=== PATIENT | male | born 2000 | race Native Hawaiian/Other Pacific Islander ===

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

== ENCOUNTER 2019-12-18 16:05 | Emergency (ER) | payer OTHER ==
[2019-12-18 16:13] VITALS: BP 162/86
--- NOTE | 2019-12-18 16:40 | ED Physician Documentation ---
PD HPI HEAD INJURY - Stated complaint Stated Complaint: LEFT JAW PX - Chief complaint Chief Complaint: Trauma Hd/Nk - History obtained from History obtained from: Patient - History of Present Illness Mechanism of head injury: Other (He has had swelling tenderness and some redness without drainage from the left cheek for couple of few days and has noticed now some left side of the neck swelling. He had had an injury on the right side of his face a week ago but did not have any swelling there. This is now developed on the left side not in an injured area.) Where head injury occurred: Home Timing - onset: How many days ago (few) Location of injury: Left (cheek) Quality of pain: Aching Associated symptoms: No: AMS, Nausea / vomiting Similar symptoms before: Has not had sx before Review of Systems Constitutional: denies: Fever, Chills Nose: denies: Rhinorrhea / runny nose, Congestion Throat: denies: Sore throat Respiratory: denies: Cough Skin: reports: Lesions (redness and local swelling left cheek within area of barrientos. He thought it was an ingrown hair.) PD PAST MEDICAL HISTORY - Past Medical History Endocrine/Autoimmune: None Musculoskeletal: None - Past Surgical History Past Surgical History: No - Present Medications Home Medications: Ambulatory Orders Medication Instructions Recorded Confirmed Ibuprofen [Motrin] 600 mg PO BID #20 tab 07/06/17 Tramadol HCl 50 mg PO Q6H PRN #20 tablet 07/06/17 dexAMETHasone [Decadron] 4 mg PO DAILY #5 tablet 07/06/17 methocarbamoL [Robaxin] 500 mg PO TID #20 tablet 07/06/17 Mupirocin 1 applic TP TID #15 g 12/18/19 Sulfamethox/Trimeth 800/160 1 each PO BID #14 tablet 12/18/19 [Bactrim Ds 800/160] - Allergies Allergies/Adverse Reactions: Allergies Allergy/AdvReac Type Severity Reaction Status Date / Time oseltamivir phosphate * Allergy Unknown Verified 12/18/19 16:10 [From Tamiflu] - Social History Does the pt smoke?: No Smoking Status: Never smoker Does the pt drink ETOH?: No Does the pt have substance abuse?: No - Immunizations Immunizations are current?: Yes PD ED PE NORMAL - Vitals Vital signs reviewed: Yes - General General: Alert and oriented X 3, No acute distress, Well developed/nourished - HEENT HEENT: Ears normal, Pharynx benign, Other (The left cheek shows some induration redness and warmth with will local area of tenderness within the area of his barrientos. There is some almost pointing of redness consistent with a local skin infection. Palpation intraorally does not show any lesions or swelling in that area. He has strong occlusion without any teeth pain. There is no fluctuance noted. The area of induration is only about 1-1/2 cm and does not feel very deep.) - Neck Neck: Supple, no meningeal sign, Other (anterior adenopathy left neck.) Results - Vitals Vitals: Vital Signs - 24 hr 12/18/19 16:10 Temperature 37.1 C Heart Rate 76 Respiratory 16 Rate Blood Pressure 162/86 H O2 Saturation 97 Oxygen O2 Source Room air PD MEDICAL DECISION MAKING - ED course Complexity details: considered differential (His injury on the right cheek last week is seeming unrelated to the current problem. He has an area of small skin abscess without any drainage. There is not fluctuance enough to warrant incision and drainage. We will treated with antibiotics.), d/w patient Departure - Departure Disposition: Home, Self Care Clinical Impression: Cutaneous abscess of face Condition: Stable Record reviewed to determine appropriate education?: Yes Instructions: ED Staph Infec Abx Tx Only Prescriptions: Mupirocin 1 applic TP TID #15 g Sulfamethox/Trimeth 800/160 [Bactrim Ds 800/160] 1 each PO BID #14 tablet Comments: Warm ice towels to help dry out the infection. You can treat her with topical antiseptics or such as well. Cleanse the area with soap and water and apply mupirocin antibiotic ointment 2-3 times a day. Also Bactrim oral antibiotic twice daily to get at the infection underneath the skin. Tylenol or ibuprofen if needed for pains. Recheck if not improved well over the next several days and resolved within 4 to 5 days. Discharge Date/Time: 12/18/19 17:23
[2019-12-18] MEDS ORDERED: SULFAMETH/TRIMETH DS 800/160 MG TABLET PO STA (16:51)
[2019-12-18] MEDS ORDERED: MUPIROCIN 2% OINT 1 GM TOP STA (16:51)
== END 2019-12-18 17:23 | disposition home or self-care (01) ==
LOC: ED 16:05
DX: L02.01 Cutaneous abscess of face (principal)
CPT/HCPCS: 99282; 99283; A9270

== ENCOUNTER 2021-11-26 14:02 | Emergency (ER) | payer BC, OTHER ==
[2021-11-26 14:26] VITALS: BP 145/73
--- NOTE | 2021-11-26 15:17 | ED Physician Documentation ---
PD HPI LOWER EXT INJURY - Stated complaint Stated Complaint: LT KNEE PX - Chief complaint Chief Complaint: Trauma Ext - History obtained from History obtained from: Patient - Additional information Additional information: The patient comes to the emergency department with chief complaint of left knee pain after injury yesterday while snowboarding. Patient states he was dropping a jump that was approximately 10 feet high when his board caught and he became disconnected from the board, falling to the ground. He states he felt a pop when his boots popped out of the board, but then felt another pop when he hit the ground. Patient states that he has had pain over his whole knee but especially on the medial aspect, and is also had some swelling. He has been able to hobble around and was able to drive his stick shift car home while operating the clutch, but he was noticing some pain in the medial knee with this. Patient states he was not injured in any other way. No prior history of injury to that knee. The patient is otherwise healthy. Review of Systems Ten Systems: 10 systems reviewed and negative Constitutional: reports: Reviewed and negative Eyes: reports: Reviewed and negative Ears: reports: Reviewed and negative Nose: reports: Reviewed and negative Throat: reports: Reviewed and negative Cardiac: reports: Reviewed and negative Respiratory: reports: Reviewed and negative GI: reports: Reviewed and negative : reports: Reviewed and negative Skin: reports: Reviewed and negative Musculoskeletal: reports: Joint pain, Joint swelling, Pain with weight bearing Neurologic: reports: Reviewed and negative Psychiatric: reports: Reviewed and negative Endocrine: reports: Reviewed and negative Immunocompromised: reports: Reviewed and negative PD PAST MEDICAL HISTORY - Past Medical History Endocrine/Autoimmune: None Musculoskeletal: None - Past Surgical History Past Surgical History: No - Present Medications Home Medications: Ambulatory Orders Medication Instructions Recorded Confirmed Ibuprofen [Motrin] 600 mg PO BID #20 tab 07/06/17 Tramadol HCl 50 mg PO Q6H PRN #20 tablet 07/06/17 dexAMETHasone [Decadron] 4 mg PO DAILY #5 tablet 07/06/17 methocarbamoL [Robaxin] 500 mg PO TID #20 tablet 07/06/17 Mupirocin 1 applic TP TID #15 g 12/18/19 Sulfamethox/Trimeth 800/160 1 each PO BID #14 tablet 12/18/19 [Bactrim Ds 800/160] - Allergies Allergies/Adverse Reactions: Allergies Allergy/AdvReac Type Severity Reaction Status Date / Time oseltamivir phosphate * Allergy Unknown Verified 11/26/21 14:26 [From Tamiflu] - Social History Does the pt smoke?: No Smoking Status: Never smoker Does the pt drink ETOH?: No Does the pt have substance abuse?: No - Immunizations Immunizations are current?: Yes PD ED PE NORMAL - Vitals Vital signs reviewed: Yes - General General: Alert and oriented X 3, No acute distress, Well developed/nourished - HEENT HEENT: Atraumatic, PERRL, EOMI, Moist mucous membranes - Neck Neck: Supple, no meningeal sign - Cardiac Cardiac: Strong equal pulses - Respiratory Respiratory: No respiratory distress - Derm Derm: Normal color, Warm and dry, No rash - Extremities Extremities: No deformity, Other (Tenderness palpation medial aspect of left knee with mild edema. Mild tenderness palpation posterior knee. No lateral edema. Patella tracks normally without tenderness. No knee instability) - Neuro Neuro: Alert and oriented X 3, No motor deficit, No sensory deficit, Other (Grossly intact) - Psych Psych: Normal mood, Normal affect Results - Vitals Vitals: Vital Signs - 24 hr 11/26/21 14:22 Temperature 36.9 C Heart Rate 64 Respiratory 14 Rate Blood Pressure 145/73 H O2 Saturation 96 Oxygen O2 Source Room air - Rads (name of study) Left knee x-ray series Radiology: Final report received, EMP read indepedently, See rad report (Negative) PD MEDICAL DECISION MAKING - ED course Complexity details: reviewed results, re-evaluated patient, considered differential, d/w patient ED course: The patient had focused tenderness and swelling medially, and I was concerned for an MCL injury. However, I could not be sure the patient did not have some degree of ACL or PCL injury, as well. The patient seemed to have a stable knee on exam, but I felt he should be placed in a knee mobilizer, and follow-up with orthopedics to discuss having an MRI done. The patient has also been given crutches. We have discussed symptomatic management at home. I have given him the contact information for orthopedic clinic. Departure - Departure Disposition: 01 Home, Self Care Clinical Impression: Knee MCL sprain Qualifiers: Encounter type: initial encounter Laterality: left Qualified Code(s): S83.412A - Sprain of medial collateral ligament of left knee, initial encounter Condition: Stable Instructions: ED Sprain Knee Collateral Ligaments Follow-Up: Jhoan Ashford MD [Provider Admit Priv/Credential] - Comments: Your x-rays look great. Your knee seems to be stable on exam, with the swelling and tenderness over the inside portion of the knee is concerning for a medial collateral ligament injury. It is difficult to tell at this point in time whether you may have injured your ACL or PCL, as well. It is important that you follow-up with orthopedics for repeat exam and possibly an MRI if they feel this is appropriate. Please call their office this afternoon or first thing tomorrow to set up a follow-up appointment. In the meantime, please wear the knee immobilizer and use the crutches to get around. Take ibuprofen and/or Tylenol if needed. You should ice the swollen area several times a day for 20 minutes at a time.
--- NOTE | 2021-11-26 15:25 | XRAY Report ---
PROCEDURE: Knee 3 View LT INDICATIONS: knee injury, pain TECHNIQUE: 3 views of the left knee(s) were acquired. COMPARISON: None. FINDINGS: Bones: No fractures or dislocations. No suspicious bony lesions. Soft tissues: No joint effusion. No suspicious soft tissue calcifications. IMPRESSION: Intact left knee. If there is continued concern for internal derangement, MR is recommen ded. Reviewed by: Rebecca Soliz MD on 11/26/2021 3:23 PM PST Approved by: Rebecca Soliz MD on 11/26/2021 3:23 PM PST Station ID: [id number]
== END 2021-11-26 15:51 | disposition home or self-care (01) ==
LOC: ED 14:02
DX: S83.412A Sprain of medial collateral ligament of left knee, initial encounter (principal); W17.89XA Other fall from one level to another, initial encounter; Y93.23 Activity, snow (alpine) (downhill) skiing, snowboarding, sledding, tobogganing and snow tubing
CPT/HCPCS: 99282; 99283

== ENCOUNTER 2021-12-01 07:38 | Outpatient (CLI) | payer BC ==
--- NOTE | 2021-12-01 16:07 | XRAY Report ---
PROCEDURE: Knee 3 View LT INDICATIONS: KNEE PAIN TECHNIQUE: 3 views of the left knee(s) were acquired. COMPARISON: None. FINDINGS: Bones: No fractures or dislocations. No suspicious bony lesions. Soft tissues: No joint effusion. No suspicious soft tissue calcifications. IMPRESSION: No acute fracture. No osseous lesion. If symptoms and/or clinical suspicion for patholog y continue, further assessment with repeat plain films, or advanced imaging (e.g., CT, MRI, or bone s can) is recommended for further assessment. Reviewed by: Deana Pinto MD on 12/01/2021 4:06 PM PST Approved by: Deana Pinto MD on 12/01/2021 4:06 PM [facility] Station ID: [id number]
== END 2021-12-01 07:39 | disposition home or self-care (01) ==
LOC: DI.WOS 07:38
PROVIDERS: ATTEND Orthopaedic Surgery
DX: M25.562 Pain in left knee (principal)

== ENCOUNTER 2022-02-25 10:58 | Emergency (ER) | payer BC, OTHER ==
[2022-02-25 11:22] VITALS: BP 168/88
[2022-02-25 11:49] LABS: RAPID STREP SCREEN Negative (Negative)
--- NOTE | 2022-02-25 11:49 | ED Physician Documentation ---
History of Present Illness - Stated complaint Stated Complaint: CONGESTED/COUGH - Chief complaint Chief Complaint: Heent - Additonal information Additional information: 21-year-old male presents emergency department for evaluation of cough c ongestion and sore throat. Symptoms began about 2 months ago. He is not vaccinated for COVID-19 but he recently saw his primary doctor. He reports that strep COVID and mono testing was all negative. States that he constantly has a productive cough sometimes some mildly blood-tinged sputum. Also blows his nose frequently also sometimes blood-tinged. No fevers. No weight loss or night sweats. His cough is worse at night especially when fully supine. He has occasionally tried Flonase with minimal relief. His PCP did advise him to start taking omeprazole though he denies a history of GERD or acid reflux. He does have enlarged tonsils but denies any history of snoring or sleep apnea. Review of Systems Constitutional: denies: Fever, Chills, Myalgias Nose: reports: Rhinorrhea / runny nose, Congestion, Epistaxis Throat: reports: Reviewed and negative Cardiac: reports: Reviewed and negative Respiratory: reports: Cough, Hemoptysis. denies: Dyspnea, Wheezing GI: reports: Reviewed and negative : reports: Reviewed and negative Skin: reports: Reviewed and negative Musculoskeletal: reports: Reviewed and negative PD PAST MEDICAL HISTORY - Past Medical History Endocrine/Autoimmune: None Musculoskeletal: None - Past Surgical History Past Surgical History: No - Present Medications Home Medications: Ambulatory Orders Medication Instructions Recorded Confirmed Ibuprofen [Motrin] 600 mg PO BID #20 tab 07/06/17 Tramadol HCl 50 mg PO Q6H PRN #20 tablet 07/06/17 dexAMETHasone [Decadron] 4 mg PO DAILY #5 tablet 07/06/17 methocarbamoL [Robaxin] 500 mg PO TID #20 tablet 07/06/17 Mupirocin 1 applic TP TID #15 g 12/18/19 Sulfamethox/Trimeth 800/160 1 each PO BID #14 tablet 12/18/19 [Bactrim Ds 800/160] - Allergies Allergies/Adverse Reactions: Allergies Allergy/AdvReac Type Severity Reaction Status Date / Time oseltamivir phosphate * Allergy Unknown Verified 02/25/22 11:22 [From Tamiflu] - Social History Does the pt smoke?: No Smoking Status: Never smoker Does the pt drink ETOH?: No Does the pt have substance abuse?: No - Immunizations Immunizations are current?: Yes PD ED PE NORMAL - General General: Alert and oriented X 3, No acute distress, Well developed/nourished - HEENT HEENT: Atraumatic, Ears normal, Moist mucous membranes, Other (Symmetrically enlarged tonsils without exudate. Mild erythema. Uvula is midline. No soft palate asymmetry or swelling. Normal phonation. Full range of motion in neck.). 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 Eye Opening: Spontaneous Motor: Obeys Commands Verbal: Oriented GCS Score: 15 - Psych Psych: Normal mood Results - Vitals Vitals: Vital Signs - 24 hr 02/25/22 11:17 Temperature 36.5 C Heart Rate 66 Respiratory 16 Rate Blood Pressure 168/88 H O2 Saturation 99 Oxygen O2 Source Room air - Labs Labs: Laboratory Tests 02/25/22 11:33 Group A Strep Rapid Negative - Rads (name of study) CXR Radiology: Final report received (No acute cardiopulmonary process) PD MEDICAL DECISION MAKING - ED course Complexity details: reviewed results, re-evaluated patient, considered differential, d/w patient ED course: 21-year-old male presents emergency department for evaluation of chronic cough congestion and sore throat that has been ongoing for more than 2 months. Seen by PCP recently and advised Flonase for suspicion of allergies as well as omeprazole for the thought that he may have silent GERD. Despite this he has not improved. Cardiopulmonary auscultation is unremarkable without hypoxia. Chest x-ray is also unrevealing. I have advised him to add Claritin as well as to use the Flonase after a steam shower and nasal rinse. Will defer any antibiotics given lack of fever and findings on chest x-ray. Did advise him to sleep upright on 2-3 pillows to help reduce postnasal drip likely contributing to symptoms. Departure - Departure Disposition: 01 Home, Self Care Clinical Impression: Cough, Post-nasal drip Condition: Stable Record reviewed to determine appropriate education?: Yes Comments: You are seen today in the emergency department for evaluation of cough congestion and sore throat. Your symptoms began about 2 months ago. Your chest x-ray is completely normal. There is no findings of pneumonia, mass or pleural effusion. Your chronic cough is likely due to allergies and postnasal drip. Use the Flonase after taking a shower. While you are in the shower I recommend that you breathing the steam blow your nose well and use a saline nasal rinse or [place] pot to help reduce congestion. Once your nose is free of congestion the Flonase will be much more effective. I also recommend that you start taking a daily Claritin to help with any seasonal allergies that are contributing to symptoms. Postnasal drip and silent acid reflux at night can cause this chronic cough. I recommend that you avoid eating 2 to 3 hours before bedtime and sleep upright on 2-3 pillows. If despite this treatment your symptoms are not better over the next 7 to 10 days then I suggest you see your primary care provider for further evaluation as you may then benefit from an ear nose throat physician or a referral to gastroenterology
--- NOTE | 2022-02-25 12:04 | XRAY Report ---
PROCEDURE: Chest 1 View X-Ray INDICATIONS: chest pain TECHNIQUE: One view of the chest was acquired. COMPARISON: None FINDINGS: Surgical changes and devices: None. Lungs and pleura: No pleural effusions or pneumothorax. Lungs are clear. Mediastinum: Mediastinal contours appear normal. Heart size is normal. Bones and chest wall: No suspicious bony lesions. Overlying soft tissues appear unremarkable. IMPRESSION: No evidence acute pulmonary process. Reviewed by: Johnny Melchor MD on 02/25/2022 12:02 PM PDT Approved by: Johnny Melchor MD on 02/25/2022 12:02 PM PDT Station ID: [id number]
== END 2022-02-25 12:51 | disposition home or self-care (01) ==
LOC: ED 10:58
DX: R05.9 Cough, unspecified (principal); R09.82 Postnasal drip
CPT/HCPCS: 87070; 87430; 99283; 99284

== ENCOUNTER 2022-03-08 10:14 | Outpatient (CLI) | payer OTHER ==
--- NOTE | 2022-03-08 11:52 | MRI Report ---
PROCEDURE: Knee LT W/O INDICATIONS: SPRIAN OF LEFT KNEE TECHNIQUE: Noncontrast sagittal PD fast spin echo and T2 fast spin echo with fat saturation, sagittal 3-D gradie nt sequence with fat saturation; coronal T1 spin echo and PD fast spin echo with fat saturation, and axial PD fast spin echo with fat saturation through the knee. COMPARISON: X-ray left knee, 3 views, 12/01/2021. FINDINGS: Image quality: Excellent. Menisci: The medial and lateral menisci demonstrate normal morphology and internal signal. The meni scal root ligaments appear intact. Cruciate ligaments: The distal anterior cruciate ligament appears mildly indistinct with increased T1 and T2 signal (series 401 image 15; series 501 image 15), suspicious for mild sprain. No full-thickn ess tear or rupturing of ACL. The posterior cruciate ligament is intact. Medial structures: The medial collateral ligament appears intact. The semimembranosus tendon insert ions and meniscocapsular junction appear intact. Visualized portions of the pes anserinus tendons ap pear normal. No abnormal bursal fluid. Lateral structures: The lateral collateral ligament, long and short heads of the biceps femoris tend on appear intact. The popliteus tendon appears normal. Iliotibial band appears normal. Anterior structures: The quadriceps and patellar tendons appear intact. Patellar alignment is matt l. No femoral trochlear dysplasia or ventral trochlear prominence. No edema in the infrapatellar fa t pad. Bones and cartilage: No bone marrow contusions or fractures. The cartilage of the medial and latera l femorotibial compartments, as well as the patellofemoral compartment, appears normal in thickness. Joint space: There is trace knee joint fluid. No Rivera's cyst. Normal appearing synovial plicae ar e incidentally noted. IMPRESSION: 1. Suspect mild sprain of ACL. No full-thickness ACL tear. 2. Trace knee joint effusion. Reviewed by: Juan C Kim MD on 03/08/2022 11:51 AM PDT Approved by: Juan C Kim MD on 03/08/2022 11:51 AM PDT Station ID: [id number]
== END 2022-03-08 10:15 | disposition home or self-care (01) ==
LOC: DI 10:14
PROVIDERS: ATTEND Student in an Organized Health Care Education/Training Program
DX: S83.412A Sprain of medial collateral ligament of left knee, initial encounter (principal); M25.462 Effusion, left knee